=== PATIENT | male | born 1950 | race Caucasian/White ===

== ENCOUNTER 2018-12-12 07:45 | Inpatient (IN) ==
[2018-12-12] MEDS ORDERED: SODIUM CHLORIDE 0.9% 1,000 ML IV STA (08:07)
[2018-12-12 08:12] LABS: Basophils # 0.1 10*3/uL (0.0-0.2); Basophils % 0.8 % (0.0-0.8); Eosinophils # 0.2 10*3/uL (0.0-0.87); Eosinophils % 2.2 % (0.00-10.9); Hematocrit 45.2 VOL% (42.0-52.0); Hemoglobin 15.4 GM/DL (14.0-18.0); Immature Granulocytes % 0.3 %; Immature Granulocytes Absolute 0.02 #; Lymphocytes # 2.3 10*3/uL (1.4-4.0); Lymphocytes % 29.2 % (21.2-54.2); Mean Corpuscular HGB Conc 34.1 GM/DL (32-36); Mean Platelet Volume 9.6 FL (9.6-12.0); Monocytes % 7.9 % (1.7-12.7); Neutrophils % 59.6 % (38.7-73.9); Platelet Count 218 T/CUMM (130-400); Red Blood Count 4.86 MC/CUMM (3.8-5.5); Red Cell Distribution Width 12.1 % (9.3-17.3); White Blood Count 7.8 T/CUMM (4-12)
[2018-12-12 08:16] LABS: INR 1.1; PT Patient Result 11.5 SECS (9.6-12.2)
[2018-12-12 08:38] LABS: Albumin 4.4 G/DL (3.4-5.0); Bilirubin,Total 0.6 MG/DL (0.2-1.0); Calcium 9.7 MG/DL (8.5-10.1); Osmolality,Calculated 285.3 MOS/KG (273-304); Total Protein 7.6 G/DL (6.4-8.3)
[2018-12-12] MEDS ORDERED: MAGNESIUM SULF RIDER 4 GM in PREMIX 1 EACH IV PRN (09:10)
[2018-12-12] MEDS ORDERED: INFLUENZA VIRUS VACCINE 0.5 ML SYRINGE IM ONE (09:10)
[2018-12-12] MEDS ORDERED: PROMETHAZINE 25 MG TABLET PO PRN (09:10)
[2018-12-12] MEDS ORDERED: MAGNESIUM SULF RIDER 2 GM in PREMIX 1 EACH IV PRN (09:10)
[2018-12-12] MEDS ORDERED: DOCUSATE SODIUM 100 MG CAPSULE PO PRN (09:10)
[2018-12-12] MEDS ORDERED: ONDANSETRON 4 MG/2 ML VIAL IV PRN (09:10)
[2018-12-12] MEDS ORDERED: POTASSIUM CHLORIDE 20 MEQ TABLET PO PRN (09:10)
[2018-12-12] MEDS ORDERED: guaiFENesin/DM ER 600-30 MG TABLET PO PRN (09:10)
[2018-12-12] MEDS ORDERED: BISACODYL 5 MG TABLET PO PRN (09:10)
[2018-12-12] MEDS ORDERED: ACETAMINOPHEN 325 MG TABLET PO PRN (09:10)
[2018-12-12] MEDS ORDERED: diphenhydrAMINE CAP 25 MG CAPSULE PO PRN (09:10)
[2018-12-12] MEDS: ENOXAPARIN 40 MG/0.4 ML SYRINGE SUBCUT SCH (11:44)
[2018-12-12] MEDS ORDERED: NITROGLYCERIN SL 0.4 MG TABLET SL PRN (13:13)
[2018-12-12] MEDS: INSULIN REGULAR 100 UNIT/ML SUBCUT SCH ×3 (13:22→22:18)
[2018-12-12] MEDS: ASPIRIN EC 81 MG TABLET PO SCH (17:30)
[2018-12-13 04:31] LABS: Basophils # 0.1 10*3/uL (0.0-0.2); Basophils % 0.7 % (0.0-0.8); Eosinophils # 0.2 10*3/uL (0.0-0.87); Eosinophils % 2.2 % (0.00-10.9); Hemoglobin 14.3 GM/DL (14.0-18.0); Immature Granulocytes % 0.3 %; Immature Granulocytes Absolute 0.02 #; Lymphocytes # 2.1 10*3/uL (1.4-4.0); Lymphocytes % 29.9 % (21.2-54.2); Mean Corpuscular Volume 92.7 FL (87-102); Mean Platelet Volume 9.9 FL (9.6-12.0); Monocytes % 8.7 % (1.7-12.7); Neutrophils % 58.2 % (38.7-73.9); Platelet Count 209 T/CUMM (130-400); Red Blood Count 4.53 MC/CUMM (3.8-5.5); Red Cell Distribution Width 12.1 % (9.3-17.3); White Blood Count 7.2 T/CUMM (4-12)
[2018-12-13 05:02] LABS: Calcium 9.2 MG/DL (8.5-10.1); Osmolality,Calculated 280.5 MOS/KG (273-304)
[2018-12-13] MEDS ORDERED: ceFAZolin 1,000 MG in SYRINGE 1 EACH IV ONE (06:00)
[2018-12-13] MEDS ORDERED: ceFAZolin 1,000 MG VIAL IRRIG ONE (06:00)
[2018-12-13] MEDS: INSULIN REGULAR 100 UNIT/ML SUBCUT SCH ×4 (06:45→23:30)
[2018-12-13] MEDS ORDERED: ceFAZolin 1,000 MG VIAL ONE (06:46)
[2018-12-13] MEDS ORDERED: HEPARIN/NACL 0.9% 2 UNITS/ML 500 ML IV ONE (06:46)
[2018-12-13] MEDS ORDERED: TISSUE ADHESIVE 1 EACH APPLICATOR TOP ONE (06:46)
[2018-12-13] MEDS ORDERED: MIDAZOLAM 2 MG/2 ML VIAL ONE ×2 (08:28→09:00)
[2018-12-13] MEDS ORDERED: LIDOCAINE 1% 20 ML VIAL ONE (08:28)
[2018-12-13] MEDS ORDERED: fentaNYL 100 MCG/2 ML VIAL ONE ×2 (08:28→09:00)
[2018-12-13] MEDS ORDERED: diphenhydrAMINE 50 MG/1 ML VIAL ONE (08:58)
[2018-12-13] MEDS ORDERED: oxyCODONE/ACETAMINOPHEN 5-325 MG TABLET PO PRN (10:02)
[2018-12-13] MEDS: ENOXAPARIN 40 MG/0.4 ML SYRINGE SUBCUT SCH (10:55)
[2018-12-13] MEDS: CLOPIDOGREL 75 MG TABLET PO SCH (11:05)
[2018-12-13] MEDS: FAMOTIDINE 20 MG TABLET PO SCH (11:05)
[2018-12-13] MEDS: LISINOPRIL 5 MG TABLET PO SCH (11:05)
[2018-12-13] MEDS: ASPIRIN EC 81 MG TABLET PO SCH (11:05)
[2018-12-13] MEDS: METOPROLOL SUCCINATE XL 50 MG TABLET PO SCH (11:06)
[2018-12-13] MEDS: SIMVASTATIN 40 MG TABLET PO SCH (11:06)
[2018-12-13] MEDS ORDERED: PHENOL 1.4% THROAT SPRAY 177 ML BOTTLE PO PRN (14:18)
[2018-12-13] MEDS: ceFAZolin 1,000 MG in SYRINGE 1 EACH IV SCH (15:57)
[2018-12-14] MEDS: ceFAZolin 1,000 MG in SYRINGE 1 EACH IV SCH (00:12)
[2018-12-14 05:45] LABS: Basophils # 0.1 10*3/uL (0.0-0.2); Basophils % 0.7 % (0.0-0.8); Eosinophils # 0.2 10*3/uL (0.0-0.87); Eosinophils % 2.9 % (0.00-10.9); Hematocrit 44.3 VOL% (42.0-52.0); Hemoglobin 15.1 GM/DL (14.0-18.0); Immature Granulocytes % 0.3 %; Immature Granulocytes Absolute 0.02 #; Lymphocytes # 1.9 10*3/uL (1.4-4.0); Lymphocytes % 25.3 % (21.2-54.2); Mean Corpuscular HGB Conc 34.1 GM/DL (32-36); Mean Corpuscular Volume 92.5 FL (87-102); Mean Platelet Volume 9.9 FL (9.6-12.0); Monocytes % 9.8 % (1.7-12.7); Platelet Count 203 T/CUMM (130-400); Red Blood Count 4.79 MC/CUMM (3.8-5.5); Red Cell Distribution Width 11.9 % (9.3-17.3); White Blood Count 7.6 T/CUMM (4-12)
[2018-12-14 05:57] LABS: Calcium 8.8 MG/DL (8.5-10.1)
[2018-12-14 07:50] VITALS: BP 131/70
[2018-12-14] MEDS: INSULIN REGULAR 100 UNIT/ML SUBCUT SCH (08:55)
[2018-12-14] MEDS: CLOPIDOGREL 75 MG TABLET PO SCH (08:56)
[2018-12-14] MEDS: ASPIRIN EC 81 MG TABLET PO SCH (08:56)
[2018-12-14] MEDS: SIMVASTATIN 40 MG TABLET PO SCH (08:56)
[2018-12-14] MEDS: METOPROLOL SUCCINATE XL 50 MG TABLET PO SCH (08:56)
[2018-12-14] MEDS: FAMOTIDINE 20 MG TABLET PO SCH (08:56)
[2018-12-14] MEDS: LISINOPRIL 5 MG TABLET PO SCH (08:56)
== END 2018-12-14 12:30 | disposition home or self-care (01) | DRG 244 ==
LOC: EDBD → EDUNIT# → N.ED 07:45 → N.EDINP 08:22 → N.ICU 08:48 → N.TELES 12-13 12:03
PROVIDERS: ADMIT Internal Medicine Cardiovascular Disease; ATTEND Internal Medicine Cardiovascular Disease